=== PATIENT | male | born 1995 | race Caucasian/White ===

== ENCOUNTER 2021-01-30 23:57 | Emergency (ER) | payer SELFPAY ==
[2021-01-31 00:07] VITALS: BP 140/98; PULSE 98; RESP 15; TEMP 36.9; O2SAT 98; BMI 30.4
--- NOTE | 2021-01-31 00:12 | ED_ITS ---
HPI - General Adult General: Chief complaint: General Medical Stated complaint: throat pain Time Seen by Provider: 01/31/21 00:01 History of Present Illness: HPI narrative: Patient is a 25-year-old male comes to the ED with a sore throat and right ear pain. patient says the sore throat started on Wednesday and he started developing the right ear pain in the last 24 hours. Patient does endorse having some nasal congestion and drainage over the past couple days as well. Denies any fevers, chills, nausea/vomiting, abdominal pain, bladder or bowel symptoms. Patient denies any shortness of breath,cough or breathing obstruction. Associated symptoms: Deny chest pain, dyspnea, headache(s), nausea, rash, palpitations or vomiting Review of Systems Const: Denies: fever(s), chills or fatigue Eyes: Denies: change in vision or eye discomfort ENMT: Reports: throat pain and ear or mastoid pain (Right side); Denies: odynophagia, nasal discharge or nasal congestion Card: Denies: chest pain, palpitations, edema, swelling of feet/ankles, dyspnea on exertion or orthopnea Resp: Denies: dyspnea, productive cough or non-productive cough GI: Denies: abdominal pain, nausea, vomiting, diarrhea, constipation or hematochezia : Denies: flank pain, difficulty urinating, dysuria or hematuria Musc: Denies: neck pain, back pain or extremity swelling Skin/Breast: Denies: rash or new lesions Neuro: Denies: headache(s), numbness in extremities or weakness in extremities Physical Exam Const: COMMON NORMALS: no acute distress, patient oriented x3 and alert GENERAL APPEARANCE: cooperative and comfortable HENMT: COMMON NORMALS: normocephalic and EAC's normal HEAD & SCALP: normocephalic EXTERNAL AUDITORY CANAL: EAC's normal TYMPANIC MEMBRANE: TM normal on the left and TM abnormal TM laterality: right Details: erythematous and fluid behind TM MOUTH: Normal oral and palatal mucosa present THROAT: uvula midline, abnormal tonsil right erythema and hypertrophy 2+; no exudates and posterior oropharynx abnormal erythema; no exudates Neck/C-Spine: COMMON NORMALS: supple GENERAL: Yes normal visual inspection Lymph: LYMPHATIC: lymphadenopathy right anterior cervical single and soft; nontender 0.5 cm Resp: COMMON NORMALS: normal respiratory effort, No retractions, No use of accessory muscles and clear to auscultation bilaterally AUSCULTATION: clear to auscultation bilaterally Cardio: COMMON NORMALS: regular rate, regular rhythm, S1 normal heart sound present, S2 normal heart sound present, No gallops present (Cardio), No clicks present (Cardio), No murmurs present (Cardio) and Peripheral pulses 2+ throughout RATE: regular rate RHYTHM: regular rhythm HEART SOUNDS: S1 normal heart sound present and S2 normal heart sound present PERIPHERAL PULSES: Peripheral pulses 2+ throughout GI: COMMON NORMALS: Normal to inspection, nondistended, normoactive bowel sounds present, Soft to palpation, non-tender and no masses PALPATION: Yes Soft to palpation : COMMON NORMALS: Yes no CVA tenderness BLADDER/KIDNEY EXAM: Yes no CVA tenderness Back/Pelvis: COMMON NORMALS: no CVA tenderness Extremity: COMMON NORMALS: normal to inspection Neuro: COMMON NORMALS: patient oriented x3 and moves all extremities SENSORIUM/ORIENTATION: Yes alert Skin: GENERAL SKIN EXAM: dry skin Course Vital Signs: Vital signs: Vital Signs Temperature 98.4 F 01/31/21 00:07 Pulse Rate 98 01/31/21 00:07 Respiratory Rate 15 01/31/21 00:07 Blood Pressure 140/98 01/31/21 00:07 Pulse Oximetry 98 01/31/21 00:07 MDM - General Adult MDM Narrative: Medical decision making narrative: Patient is a 25-year-old male comes to the ED with sore throat and right ear pain. Patient appears nontoxic and is in no acute distress. He has some erythema and hypertrophy of the right tonsil. Right ear exam otitis media. Strep test was negative. Patient was given a dose of IM Decadron and a dose of amoxicillin while here in the ED. He was discharged home with otitis media and viral tonsillitis. I sent him home with a prescription of amoxicillin. Told to follow-up with his PCP in 7 to 10 days reevaluation. Return to ED precautions given. Patient understood and agreed with plan. Lab Data: Attestation: I reviewed the patient's lab results. Labs: Lab Results 01/31/21 Range/Units 00:19 Group A Strep Rapi d Negative (Negative) Discharge Plan Discharge Patient Disposition: Home Clinical Impression: Viral tonsillitis Otitis media Qualifiers: Otitis media type: serous Chronicity: acute Laterality: right Recurrence: non- recurrent Qualified Code(s): H65.01 - Acute serous otitis media, right ear Condition: Stable Prescriptions: New amoxicillin 500 mg tablet 500 mg PO BID 10 Days Qty: 20 RF: 0 Discharge Orders: Discharge ED (Routine); Ordered 01/31/21 Ordered By: Jesse Antonio Discharge Diet: Regular Discharge Activity: Resume usual activity Patient Instructions: Otitis Media (ED), Tonsillitis (ED) Activity Restrictions/Additional Instructions: Follow-up with medical provider as directed in 7 to 10 days for reevaluation. Take medications as prescribed. Return to the ER or your medical provider if condition worsens. Please read and understand discharge instructions. Thank you for choosing [facility] for your healthcare needs today. Please realize this is an emergency room and that we are providing you with a medical screening exam and this may not be complete and all inclusive of all the testing and or work up that you may need to determine your ailment or severity of your illness. It is very important that you follow up as instructed or that you return to the Emergency Department should you have concerns or if your condition changes or worsens in any way. Coding Level of Care Code ED Branch [employer] Representative for [employer] Exam Comprehensive
[2021-01-31 00:35] LABS: Rapid Strep A Test Negative (Negative)
[2021-01-31] MEDS: amoxicillin 500 mg Capsule PO (00:52)
[2021-01-31] MEDS: dexamethasone 10 mg/mL INJ IM (00:52)
== END 2021-01-31 00:56 | disposition home or self-care (01) ==
PROVIDERS: Emergency Provider Physician Assistant
DX: J03.80 Acute tonsillitis due to other specified organisms (principal); H65.01 Acute serous otitis media, right ear
CPT/HCPCS: 87081; 87880; 96372; 99283; J1100